=== PATIENT | female | born 2000 | race Caucasian/White ===

== ENCOUNTER 2021-01-28 22:49 | Emergency (ER) | payer OTHER ==
[2021-01-28] MEDS ORDERED: Ondansetron 4 MG/2 ML SDV IVPUSH ONE (23:13)
[2021-01-28] MEDS ORDERED: Sodium Chloride 0.9% 10 ML Syringe FLUSH PRN (23:13)
[2021-01-28] MEDS ORDERED: HYDROmorphone 0.5 MG/0.5 ML Syringe IVPUSH ONE (23:14)
[2021-01-28] MEDS ORDERED: Ketorolac 30 MG/ML SDV IVPUSH ONE (23:14)
[2021-01-28] MEDS ORDERED: Sodium Chloride 0.9% 1,000 ML IV SCH (23:15)
--- NOTE | 2021-01-29 00:09 | EDM.PDOC ---
ED HPI GENERAL MEDICAL PROBLEM - General Chief Complaint: Flank Pain Stated Complaint: BACK AND ABDOMINAL PAIN Time Seen by Provider: 01/28/21 22:57 Source of Information: Reports: Patient History Limitations: Reports: No Limitations - History of Present Illness INITIAL COMMENTS - FREE TEXT/NARRATIVE: The patient presents with flank pain. This morning she woke up with right flank pain that radiated to her right lower abdomen. She has nausea and vomiting. She took a hot bath and it did get better for awhile. The pain came back and now it is in the left flank as well. She has no fever, chills, cough, chest pain, shortness of breath, dysuria, hematuria or diarrhea. She has no history of kidney stones. Onset: Sudden Duration: Hour(s): Location: Reports: Abdomen, Back Quality: Reports: Sharp Severity: Severe Improves with: Reports: None Worsens with: Reports: None Associated Symptoms: Reports: Nausea/Vomiting. Denies: Chest Pain, Cough, Fever/Chills, Headaches, Shortness of Breath Lower Back Pain Score (Numeric/FACES): 10 - Related Data Allergies Allergy/AdvReac Type Severity Reaction Status Date / Time codeine Allergy Severe Airway Verified 01/28/21 23:32 Tightness Home Meds: Home Meds cephALEXin [Keflex] 500 mg PO BID #10 cap 01/29/21 [Rx] Past Medical History - Past Health History Medical/Surgical History: Denies Medical/Surgical History Social & Family History - Tobacco Use Tobacco Use Status *Q: Current Every Day Tobacco User Years of Tobacco use: 3 Packs/Tins Daily: 0.1 - Recreational Drug Use Recreational Drug Use: Yes Drug Use in Last 12 Months: Yes Recreational Drug Type: Reports: Marijuana/Hashish Recreational Drug Use Frequency: Rarely ED ROS GENERAL - Review of Systems Review Of Systems: See Below Constitutional: Reports: No Symptoms HEENT: Reports: No Symptoms Respiratory: Reports: No Symptoms Cardiovascular: Reports: No Symptoms Endocrine: Reports: No Symptoms GI/Abdominal: Reports: Abdominal Pain, Nausea, Vomiting. Denies: Diarrhea : Reports: Flank Pain Musculoskeletal: Reports: No Symptoms, Back Pain ED EXAM, GI/ABD - Physical Exam Exam: See Below Exam Limited By: No Limitations General Appearance: Alert, No Apparent Distress Ears: Normal External Exam Nose: Normal Inspection Head: Atraumatic, Normocephalic Neck: Normal Inspection Respiratory/Chest: No Respiratory Distress, Lungs Clear, Normal Breath Sounds Cardiovascular: Regular Rate, Rhythm, No Edema, No Murmur GI/Abdominal Exam: Soft, Non-Tender, No Organomegaly, No Mass Back Exam: CVA Tenderness (R) Extremities: Normal Inspection Course - Vital Signs Last Recorded V/S: Last Vital Signs Temp 97.6 F 01/28/21 22:58 Pulse 100 01/28/21 22:58 Resp 16 01/28/21 22:58 BP 144/93 H 01/28/21 22:58 Pulse Ox 99 01/28/21 22:58 - Orders/Labs/Meds Orders: Active Orders 24 hr Category Date Time Status Peripheral IV Care [RC] . DIRECTED Care 01/28/21 23:13 Active Abdomen Pelvis wo Cont [CT] Stat Exams 01/28/21 23:13 Taken Sodium Chloride 0.9% [Normal Saline] 1,000 ml Med 01/28/21 23:15 Active IV ASDIRECTED Sodium Chloride 0.9% [Saline Flush] Med 01/28/21 23:13 Active 10 ml FLUSH ASDIRECTED PRN ED Antiemetic Medication Reflex [OM.PC] Stat Oth 01/28/21 23:13 Ordered Peripheral IV Insertion Adult [OM.PC] Stat Oth 01/28/21 23:13 Ordered Medication Orders Sodium Chloride (Normal Saline) 1,000 mls @ 125 mls/hr IV ASDIRECTED RAJ Last Admin: 01/28/21 23:29 Dose: 125 mls/hr Documented by: PAU Sodium Chloride (Sodium Chloride 0.9% 10 Ml Syringe) 10 ml FLUSH ASDIRECTED PRN PRN Reason: Keep Vein Open Last Admin: 01/28/21 23:31 Dose: 10 ml Documented by: PAU Labs: Laboratory Tests 01/28/21 01/28/21 01/28/21 Range/Units 23:25 23:25 23:25 WBC 12.98 H (3.98-10.04) K/mm3 RBC 4.53 (3.98-5.22) M/mm3 Hgb 13.3 (11.2-15.7) gm/dl Hct 40.8 (34.1-44.9) % MCV 90.1 (79.4-94.8) fl MCH 29.4 (25.6-32.2) pg MCHC 32.6 (32.2-35.5) g/dl RDW Std Deviation 42.7 (36.4-46.3) fL Plt Count 324 (182-369) K/mm3 MPV 10.8 (9.4-12.3) fl Neut % (Auto) 69.6 (34.0-71.1) % Lymph % (Auto) 17.7 L (19.3-51.7) % [place] % (Auto) 11.3 (4.7-12.5) % Eos % (Auto) 1.0 (0.7-5.8) Baso % (Auto) 0.2 (0.1-1.2) % Neut # (Auto) 9.02 H (1.56-6.13) K/mm3 Lymph # (Auto) 2.30 (1.18-3.74) K/mm3 [place] # (Auto) 1.47 H (0.24-0.36) K/mm3 Eos # (Auto) 0.13 (0.04-0.36) K/mm3 Baso # (Auto) 0.03 (0.01-0.08) K/mm3 Manual Slide Review Normal smear Sodium 144 (136-145) mEq/L Potassium 3.7 (3.5-5.1) mEq/L Chloride 108 H (98-107) mEq/L Carbon Dioxide 25 (21-32) mEq/L Anion Gap 14.7 (5-15) BUN 7 (7-18) mg/dL Creatinine 0.8 (0.55-1.02) mg/dL Est Cr Clr Drug Dosing 93.56 mL/min Estimated GFR (MDRD) > 60 (>60) mL/min BUN/Creatinine Ratio 8.8 L (14-18) Glucose 110 H (70-99) mg/dL Calcium 9.3 (8.5-10.1) mg/dL Total Bilirubin 1.1 H (0.2-1.0) mg/dL AST 16 (15-37) U/L ALT 28 (14-59) U/L Alkaline Phosphatase 58 (46-116) U/L Total Protein 7.6 (6.4-8.2) g/dl Albumin 4.1 (3.4-5.0) g/dl Globulin 3.5 gm/dL Albumin/Globulin Ratio 1.2 (1-2) Lipase 67 L (73-393) U/L HCG, Qual Negative (NEGATIVE) Urine Color (Yellow) Urine Appearance (Clear) Urine pH (5.0-8.0) Ur Specific [place] (1.005-1.030) Urine Protein (Negative) Urine Glucose (UA) (Negative) Urine Ketones (Negative) Urine Occult Blood (Negative) Urine Nitrite (Negative) Urine Bilirubin (Negative) Urine Urobilinogen (0.2-1.0) Ur Leukocyte Esterase (Negative) Urine RBC (0-5) /hpf Urine WBC (0-5) /hpf Urine WBC Clumps (NOT SEEN) /hpf Ur Squamous Epith Cells (0-5) /hpf Urine Bacteria (FEW) /hpf Urine Mucus (FEW) /hpf 01/29/21 Range/Units 00:52 WBC (3.98-10.04) K/mm3 RBC (3.98-5.22) M/mm3 Hgb (11.2-15.7) gm/dl Hct (34.1-44.9) % MCV (79.4-94.8) fl MCH (25.6-32.2) pg MCHC (32.2-35.5) g/dl RDW Std Deviation (36.4-46.3) fL Plt Count (182-369) K/mm3 MPV (9.4-12.3) fl Neut % (Auto) (34.0-71.1) % Lymph % (Auto) (19.3-51.7) % [place] % (Auto) (4.7-12.5) % Eos % (Auto) (0.7-5.8) Baso % (Auto) (0.1-1.2) % Neut # (Auto) (1.56-6.13) K/mm3 Lymph # (Auto) (1.18-3.74) K/mm3 [place] # (Auto) (0.24-0.36) K/mm3 Eos # (Auto) (0.04-0.36) K/mm3 Baso # (Auto) (0.01-0.08) K/mm3 Manual Slide Review Sodium (136-145) mEq/L Potassium (3.5-5.1) mEq/L Chloride (98-107) mEq/L Carbon Dioxide (21-32) mEq/L Anion Gap (5-15) BUN (7-18) mg/dL Creatinine (0.55-1.02) mg/dL Est Cr Clr Drug Dosing mL/min Estimated GFR (MDRD) (>60) mL/min BUN/Creatinine Ratio (14-18) Glucose (70-99) mg/dL Calcium (8.5-10.1) mg/dL Total Bilirubin (0.2-1.0) mg/dL AST (15-37) U/L ALT (14-59) U/L Alkaline Phosphatase (46-116) U/L Total Protein (6.4-8.2) g/dl Albumin (3.4-5.0) g/dl Globulin gm/dL Albumin/Globulin Ratio (1-2) Lipase (73-393) U/L HCG, Qual (NEGATIVE) Urine Color Yellow (Yellow) Urine Appearance Clear (Clear) Urine pH 7.0 (5.0-8.0) Ur Specific [place] 1.025 (1.005-1.030) Urine Protein 2+ H (Negative) Urine Glucose (UA) Negative (Negative) Urine Ketones Trace H (Negative) Urine Occult Blood 3+ H (Negative) Urine Nitrite Negative (Negative) Urine Bilirubin Negative (Negative) Urine Urobilinogen 0.2 (0.2-1.0) Ur Leukocyte Esterase 2+ H (Negative) Urine RBC 5-10 H (0-5) /hpf Urine WBC >100 H (0-5) /hpf Urine WBC Clumps Few (NOT SEEN) /hpf Ur Squamous Epith Cells 0-5 (0-5) /hpf Urine Bacteria Moderate H (FEW) /hpf Urine Mucus Rare (FEW) /hpf Meds: Medications Generic Name Dose Route Start Last Admin Trade Name Freq PRN Reason Stop Dose Admin Sodium Chloride 1,000 mls @ 125 mls/hr 01/28/21 23:15 01/28/21 23:29 Normal Saline IV 125 mls/hr ASDIRECTED RAJ Administration Sodium Chloride 10 ml 01/28/21 23:13 01/28/21 23:31 Sodium Chloride 0.9% 10 Ml Syringe FLUSH 10 ml ASDIRECTED PRN Administration Keep Vein Open Discontinued Medications Generic Name Dose Route Start Last Admin Trade Name Freq PRN Reason Stop Dose Admin Cephalexin 500 mg 01/29/21 01:23 Cephalexin 500 Mg Cap PO 01/29/21 01:24 ONETIME ONE Hydromorphone HCl 0.5 mg 01/28/21 23:14 01/28/21 23:40 Hydromorphone 0.5 Mg/0.5 Ml Syringe IVPUSH 01/28/21 23:15 0.5 mg ONETIME ONE Administration Ketorolac Tromethamine 30 mg 01/28/21 23:14 01/28/21 23:30 Ketorolac 30 Mg/Ml Sdv IVPUSH 01/28/21 23:15 30 mg ONETIME ONE Administration Ondansetron HCl 4 mg 01/28/21 23:13 01/28/21 23:29 Ondansetron 4 Mg/2 Ml Sdv IVPUSH 01/28/21 23:14 4 mg ONETIME ONE Administration - Re-Assessments/Exams Free Text/Narrative Re-Assessment/Exam: 01/29/21 00:07 I ordered an IV NS at 125mL/hr, zofran 4mg IV, dilaudid 0.5mg IV, toradol 30mg IV, labs, UA and a CT of her abdomen and pelvis without IV or oral contrast to look for a kidney stone. 01/29/21 01:26 Her WBC was elevated at 12.98. Her CMP looks good. Her lipase was low. Her HCG is negative. Her UA shows she has a UTI. I will give her a dose of keflex here now and a prescription for more. Her CT shows no kidney stones and no appendicitis. She does have a right ovarian cyst. The official read will be back in the morning. Departure - Departure Time of Disposition: 01:30 Disposition: Home, Self-Care 01 Condition: Good Clinical Impression: UTI, Urinary tract infectious disease Ovarian cyst Qualifiers: Laterality: right Qualified Code(s): N83.201 - Unspecified ovarian cyst, right side - Discharge Information *PRESCRIPTION DRUG MONITORING PROGRAM REVIEWED*: Not Applicable *COPY OF PRESCRIPTION DRUG MONITORING REPORT IN PATIENT FAINA: Not Applicable Prescriptions: cephALEXin [Keflex] 500 mg PO BID #10 cap Referrals: PCP,None [Primary Care Provider] - Joanna Lomeli NP [Nurse Practitioner] - 1 Week Forms: ED Department Discharge Additional Instructions: Take the keflex 2 times per day for 5 days. Drink plenty of fluids. Take tylenol or motrin for pain. Please return if you are worse. Sepsis Event Note (ED) - Evaluation Sepsis Screening Result: No Definite Risk - Focused Exam Vital Signs: Vital Signs Temp Pulse Resp BP Pulse Ox 01/28/21 22:58 97.6 F 100 16 144/93 H 99 - My Orders Last 24 Hours: My Active Orders 01/28/21 23:13 Peripheral IV Care [RC] . DIRECTED Abdomen Pelvis wo Cont [CT] Stat Sodium Chloride 0.9% [Saline Flush] 10 ml FLUSH ASDIRECTED PRN ED Antiemetic Medication Reflex [OM.PC] Stat Peripheral IV Insertion Adult [OM.PC] Stat 01/28/21 23:15 Sodium Chloride 0.9% [Normal Saline] 1,000 ml IV ASDIRECTED - Assessment/Plan Last 24 Hours: My Active Orders 01/28/21 23:13 Peripheral IV Care [RC] . DIRECTED Abdomen Pelvis wo Cont [CT] Stat Sodium Chloride 0.9% [Saline Flush] 10 ml FLUSH ASDIRECTED PRN ED Antiemetic Medication Reflex [OM.PC] Stat Peripheral IV Insertion Adult [OM.PC] Stat 01/28/21 23:15 Sodium Chloride 0.9% [Normal Saline] 1,000 ml IV ASDIRECTED
[2021-01-29] MEDS ORDERED: Cephalexin 500 MG Cap PO ONE (01:23)
--- NOTE | 2021-01-29 05:47 | CT ---
CT abdomen and pelvis Technique: Multiple axial sections were obtained from above the dome of the diaphragm inferiorly through the pubic symphysis. Intravenous and oral contrast were not utilized. Study has been performed as a ureteral stone protocol. Comparison: No prior abdominal imaging is available. Findings: Vague calcifications are seen in the area of the renal papilla. These findings are suspicious for mild medullary sponge kidney. No larger calcifications are seen within the kidneys. No ureteral dilatation or ureteral stone is seen. Visualized lung bases show nothing acute. Liver contains no focal parenchymal abnormality. Spleen appears normal. Adrenal glands show no nodule. No abnormality is seen within the pancreas. Gallbladder contains no calcified gallstones. Abdominal aorta shows no aneurysm. No retroperitoneal adenopathy or mesenteric abnormalities are seen. Appendix is seen which is normal in size. No pelvic mass or adenopathy is seen. No free fluid or inflammatory change is appreciated. Bone window settings were reviewed which show no acute osseous abnormality. Impression: 1. 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 2. No other abnormal calcifications are seen within the kidneys. No ureteral dilatation or ureteral stone is seen. 3. No definite acute abnormality is otherwise seen on noncontrast CT study of the abdomen and pelvis. Diagnostic code #2
== END 2021-01-29 01:53 | disposition home or self-care (01) ==
LOC: JD.ED 22:49
DX: N83.201 Unspecified ovarian cyst, right side (principal); N39.0 Urinary tract infection, site not specified; Z88.5 Allergy status to narcotic agent; Z72.0 Tobacco use
CPT/HCPCS: 36415; 74176; 80053; 81001; 83690; 84703; 85025; 96374; 96375; 99284; A9270; J1170; J1885; J2405; J7030

== ENCOUNTER 2023-03-30 22:50 | Emergency (ER) | payer SELFPAY ==
[2023-03-30 23:36] LABS: BASOPHILS ABSOLUTE AUTO 0.04 K/mm3 (0.01-0.08); BASOPHILS PERCENT AUTO 0.4 % (0.1-1.2); EOSINOPHILS ABSOLUTE AUTO 0.23 K/mm3 (0.04-0.36); EOSINOPHILS PERCENT AUTO 2.1 (0.7-5.8); HEMATOCRIT 39.2 % (34.1-44.9); HEMOGLOBIN 12.9 gm/dl (11.2-15.7); IMMATURE GRAN ABSOLUTE AUTO 0.02 K/mm3 (0.00-0.10); IMMATURE GRAN PERCENT AUTO 0.2 % (<=1.0); LYMPHOCYTES ABSOLUTE AUTO 3.18 K/mm3 (1.18-3.74); LYMPHOCYTES PERCENT AUTO 29.1 % (19.3-51.7); MEAN CORPUSCULAR HEMOGLOBIN 29.6 pg (25.6-32.2); MEAN CORPUSCULAR HGB CONC 32.9 g/dl (32.2-35.5); MEAN CORPUSCULAR VOLUME 89.9 fl (79.4-94.8); MEAN PLATELET VOLUME 11.1 fl (9.4-12.3); MONOCYTES ABSOLUTE AUTO 1.02 K/mm3 (0.24-0.36); MONOCYTES PERCENT AUTO 9.3 % (4.7-12.5); NEUTROPHILS ABSOLUTE AUTO 6.42 K/mm3 (1.56-6.13); NEUTROPHILS PERCENT AUTO 58.9 % (34.0-71.1); PLATELET COUNT,PLT 350 K/mm3 (182-369); RED BLOOD CELL COUNT 4.36 M/mm3 (3.98-5.22); WHITE BLOOD CELL COUNT,WBC 10.91 K/mm3 (3.98-10.04)
[2023-03-30 23:48] LABS: D-DIMER QUANTITATIVE 0.22 mg/L (0.19-0.50); INR 1.05; PROTHROMBIN TIME 11.2 SECONDS (9.7-12.0)
[2023-03-30 23:54] LABS: A/G RATIO 1.1 (1-2); ANION GAP 15.4 (5-15); BILIRUBIN TOTAL 0.7 mg/dL (0.2-1.0); CREATININE 0.7 mg/dL (0.55-1.02); EST CRCL DRUG DOSING (CG) 109.78 mL/min; POTASSIUM,K 3.4 mEq/L (3.5-5.1); PROTEIN TOTAL,TP 7.6 g/dl (6.4-8.2)
== END 2023-03-31 00:09 | disposition home or self-care (01) ==
LOC: JD.ED 22:50
DX: R07.89 Other chest pain (principal); F17.210 Nicotine dependence, cigarettes, uncomplicated; Z88.5 Allergy status to narcotic agent
CPT/HCPCS: 36415; 71045; 71045-26; 80053; 84484; 85025; 85379; 85610; 93005; 93010; 99284; 99285

== ENCOUNTER 2024-10-05 10:37 | Emergency (ER) | payer SELFPAY ==
[2024-10-05 11:32] LABS: BASOPHILS PERCENT AUTO 0.3 % (0.0-1.0); EOSINOPHILS ABSOLUTE AUTO 0.2 K/mm3 (0.0-0.4); EOSINOPHILS PERCENT AUTO 1.9 % (0.0-6.0); IMMATURE GRAN ABSOLUTE AUTO 0.04 K/mm3 (0.00-0.05); IMMATURE GRAN PERCENT AUTO 0.4 % (0.0-0.4); LYMPHOCYTES ABSOLUTE AUTO 1.3 K/mm3 (1.0-4.8); LYMPHOCYTES PERCENT AUTO 14.1 % (24.0-44.0); MEAN CORPUSCULAR HGB CONC 33.3 g/dl (32.0-36.0); MEAN PLATELET VOLUME 10.4 fl (9.4-12.3); MONOCYTES ABSOLUTE AUTO 1.1 K/mm3 (0.0-0.8); MONOCYTES PERCENT AUTO 11.4 % (0.0-8.0); NEUTROPHILS ABSOLUTE AUTO 6.8 K/mm3 (1.8-7.7); NEUTROPHILS PERCENT AUTO 71.9 % (41.0-71.0); PLATELET COUNT,PLT 275 K/mm3 (150-400); RED BLOOD CELL COUNT 4.14 M/mm3 (4.10-5.30)
[2024-10-05 11:56] LABS: A/G RATIO 1.1 (1-2); ALBUMIN 3.5 g/dl (3.4-5.0); ANION GAP 9.6 (5-15); BILIRUBIN TOTAL 1.2 mg/dL (0.2-1.0); CALCIUM 8.9 mg/dL (8.5-10.1); CREATININE 0.7 mg/dL (0.55-1.02); EST CRCL DRUG DOSING (CG) 103.4 mL/min; MAGNESIUM 1.8 mg/dL (1.8-2.4); POTASSIUM,K 3.6 mEq/L (3.5-5.1); PROTEIN TOTAL,TP 6.7 g/dl (6.4-8.2)
== END 2024-10-05 14:38 | disposition home or self-care (01) ==
LOC: JD.ED 10:37
DX: R53.83 Other fatigue (principal); Z88.5 Allergy status to narcotic agent
CPT/HCPCS: 36415; 76817; 76817-26; 80053; 83735; 84702; 85025; 87428-QW; 99283; 99284

== ENCOUNTER 2025-06-07 04:06 | Inpatient (IN) | payer BC ==
[2025-06-07] MEDS ORDERED: Ondansetron 4 MG/2 ML SDV IVPUSH PRN (04:43)
[2025-06-07] MEDS ORDERED: Sodium Chloride 0.9% 10 ML Syringe FLUSH PRN (04:43)
[2025-06-07] MEDS ORDERED: Oxytocin/0.9 % Sodium Chloride 30 UNIT/500 ML BAG IV SCH (04:45)
[2025-06-07] MEDS: Oxytocin/0.9 % Sodium Chloride 30 UNIT/500 ML BAG IV SCH (05:01)
[2025-06-07] MEDS: Lactated Ringers 1,000 ML IV SCH (05:01)
[2025-06-07] MEDS: Nalbuphine 10 MG/1 ML Vial IVPUSH PRN (05:01)
[2025-06-07 05:30] LABS: BASOPHILS ABSOLUTE AUTO 0.1 K/mm3 (0.0-0.2); BASOPHILS PERCENT AUTO 0.5 % (0.0-1.0); EOSINOPHILS ABSOLUTE AUTO 0.4 K/mm3 (0.0-0.4); EOSINOPHILS PERCENT AUTO 2.3 % (0.0-6.0); IMMATURE GRAN ABSOLUTE AUTO 0.22 K/mm3 (0.00-0.05); IMMATURE GRAN PERCENT AUTO 1.5 % (0.0-0.4); LYMPHOCYTES ABSOLUTE AUTO 3.0 K/mm3 (1.0-4.8); LYMPHOCYTES PERCENT AUTO 20.3 % (24.0-44.0); MEAN PLATELET VOLUME 12.6 fl (9.4-12.3); MONOCYTES ABSOLUTE AUTO 1.6 K/mm3 (0.0-0.8); MONOCYTES PERCENT AUTO 10.4 % (0.0-8.0); NEUTROPHILS ABSOLUTE AUTO 9.7 K/mm3 (1.8-7.7); NEUTROPHILS PERCENT AUTO 65.0 % (41.0-71.0); NRBC ABSOLUTE 0.00 (0.00-0.02); NRBC PERCENT 0.0 % (0.0-0.2); PLATELET COUNT,PLT 314 K/mm3 (150-400); RED BLOOD CELL COUNT 4.00 M/mm3 (4.10-5.30); WHITE BLOOD CELL COUNT,WBC 14.94 K/mm3 (3.9-11.3)
[2025-06-07 05:39] LABS: A/G RATIO 0.6 (1-2); ALANINE AMINOTRANSFERASE,ALT 20.0 U/L (14-59); ASPARTATE AMNIOTRANSFERASE,AST 18.0 U/L (15-37); BILIRUBIN TOTAL 0.5 mg/dL (0.2-1.0); BLOOD UREA NITROGEN,BUN 8.0 mg/dL (7-18); CARBON DIOXIDE,CO2 21.0 mEq/L (21-32); CHLORIDE,CL 103.0 mEq/L (98-107); CREATININE 0.7 mg/dL (0.55-1.02); EST CRCL DRUG DOSING (CG) 107.01 mL/min; ESTIMATED GFR 124.0 mL/min (>60); GLUCOSE RANDOM 106.0 mg/dL (70-99); POTASSIUM,K 4.1 mEq/L (3.5-5.1); PROTEIN TOTAL,TP 7.2 g/dl (6.4-8.2); SODIUM,NA 138.0 mEq/L (136-145)
[2025-06-07] MEDS: fentaNYL 100 MCG/2 ML SDV IVPUSH ONE (07:59)
[2025-06-07 08:01] LABS: CREATININE,URINE RAND 63.6 mg/dL (30.0-125.0); PROTEIN CREATININE RATIO,URINE 272.0 mg/g (0-149); PROTEIN,URINE RANDOM 17.3 mg/dL (0.0-11.8)
[2025-06-07] MEDS ORDERED: Sodium Chloride 0.9% 10 ML Syringe FLUSH SCH (09:00)
[2025-06-07] MEDS: Benzocaine/Menthol 20%-0.5% Spray 78 GM Cannister TOP PRN (12:00)
[2025-06-07] MEDS: Witch Hazel Medicated Pads 40/Jar TOP PRN (20:14)
== END 2025-06-08 14:10 | disposition home or self-care (01) | DRG 560 ==
LOC: JD.OBCHECK 04:06 → JD.OB 04:08 → JD.OBCHECK 04:49 → OBSVTOIN 09:43 → JD.OB 09:44
PROVIDERS: ADMIT Obstetrics & Gynecology; ATTEND Obstetrics & Gynecology
PROC: 0HQ9XZZ Repair Perineum Skin, External Approach (ICD-10-PCS; principal; 2025-06-07)
PROC: 10907ZC Drainage of Amniotic Fluid, Therapeutic from Products of Conception, Via Natural or Artificial Opening (ICD-10-PCS; principal; 2025-06-07)
PROC: 10E0XZZ Delivery of Products of Conception, External Approach (ICD-10-PCS; principal; 2025-06-07)
DX: O48.0 Post-term pregnancy (principal); O24.420 Gestational diabetes mellitus in childbirth, diet controlled; O70.0 First degree perineal laceration during delivery; Z3A.40 40 weeks gestation of pregnancy; Z37.0 Single live birth; Z88.8 Allergy status to other drugs, medicaments and biological substances
CPT/HCPCS: 36415; 59025; 59409; 80053; 82570; 82947; 84156; 85025; 86592; 86850; 86900; 86901; A9270-GY; J2003; J2300; J3010; J7120; J7999